=== PATIENT | male | born 1980 | race Caucasian/White ===

== ENCOUNTER 2017-03-26 20:59 | Emergency (ER) | payer OTHER ==
[~2017-03-26 20:59] MED LIST: CLARITIN10 MG PO
== END 2017-03-26 21:27 | disposition home or self-care (01) ==
LOC: ER1 20:59
DX: T21.12XA Burn of first degree of abdominal wall, initial encounter (principal); I10 Essential (primary) hypertension; F32.9 Major depressive disorder, single episode, unspecified; F17.210 Nicotine dependence, cigarettes, uncomplicated; X10.2XXA Contact with fats and cooking oils, initial encounter
CPT/HCPCS: 90471; 90714; 99283